=== PATIENT | male | born 1990 | race Caucasian/White ===

== ENCOUNTER 2020-03-31 16:47 | Emergency (ER) | payer SELFPAY ==
[2020-03-31] MEDS ORDERED: Sodium Chloride 0.9% 10 ML Syringe FLUSH PRN (17:00)
[2020-03-31] MEDS ORDERED: Sodium Chloride 0.9% 1,000 ML IV ONE (17:01)
[2020-03-31] MEDS ORDERED: Pantoprazole 40 MG Vial IVPUSH ONE (17:01)
[2020-03-31] MEDS ORDERED: Alum Hydroxide/Mag Hydroxide 15 ML, Lidocaine 2% 15 ML PO ONE ×2 (17:09)
[2020-03-31] MEDS ORDERED: Ondansetron 4 MG/2 ML SDV IVPUSH ONE (17:09)
--- NOTE | 2020-03-31 17:15 | EDM.PDOC ---
ED HPI GENERAL MEDICAL PROBLEM - General Chief Complaint: Abdominal Pain Stated Complaint: SEVERE ABD PAIN Time Seen by Provider: 03/31/20 17:10 Source of Information: Reports: Patient History Limitations: Reports: No Limitations - History of Present Illness INITIAL COMMENTS - FREE TEXT/NARRATIVE: Presents with worsening epigastric pain x 4-5 days, associated with nausea. History of similar symptoms previously after taking Ibuprofen, was diagnosed with gastritis. He has not taken NSAIDs after that diagnosis. The pain is exacerbated with PO intake, so he has not eaten or drank much in the last 3-4 days. Last urine output was 2 days ago. Patient no longer takes PPI medication because he does not have insurance. He denies EtOH consumption. He does continue to smoke cigarettes. Denies melena, hematochezia, or hematemesis. Patient also has a prior h/o hypokalemia, but no longer takes potassium supplements. Duration: Day(s): (5) Location: Reports: Abdomen Quality: Reports: Ache Severity: Severe Worsens with: Reports: Eating Associated Symptoms: Reports: Nausea/Vomiting - Related Data Allergies Allergy/AdvReac Type Severity Reaction Status Date / Time ibuprofen Allergy Stomach Verified 03/31/20 17:10 Ache Home Meds: Home Meds NK [No Known Home Meds] 03/31/20 [History] Past Medical History Gastrointestinal History: Reports: Gastritis Endocrine/Metabolic History: Reports: Other (See Below) (Hypokalemia) Social & Family History - Tobacco Use Tobacco Use Status *Q: Current Every Day Tobacco User Tobacco Use Within Last Twelve Months: Cigarettes - Alcohol Use Alcohol Use History: No ED ROS GENERAL - Review of Systems Review Of Systems: Comprehensive ROS is negative, except as noted in HPI. ED EXAM, GI/ABD - Physical Exam Exam: See Below Exam Limited By: No Limitations General Appearance: Alert, WD/WN, No Apparent Distress Ears: Hearing Grossly Normal Nose: Normal Inspection Throat/Mouth: No Airway Compromise Head: Atraumatic, Normocephalic Neck: Full Range of Motion Respiratory/Chest: No Respiratory Distress, Lungs Clear, Normal Breath Sounds Cardiovascular: Regular Rate, Rhythm, No Murmur GI/Abdominal Exam: Normal Bowel Sounds, Soft, No Distention, Guarding, Tender (epigastric) Extremities: Normal Range of Motion Neurological: Alert, Normal Cognition Psychiatric: Normal Affect, Normal Mood Skin Exam: Warm, Dry, Intact #1 Interpretation EKG Date: 03/31/20 Time: 17:58 Rhythm: NSR Rate (Beats/Min): 76 [place]: Normal P-Wave: Present QRS: Normal ST-T: Normal QT: Normal Comparison: NA - No Prior EKG Course - Vital Signs Last Recorded V/S: Last Vital Signs Temp 36.7 C 03/31/20 16:50 Pulse 127 H 03/31/20 16:50 Resp 18 03/31/20 16:50 BP 142/112 H 03/31/20 16:50 Pulse Ox 100 03/31/20 16:50 - Orders/Labs/Meds Orders: Active Orders 24 hr Category Date Time Status EKG Documentation Completion [RC] ASDIRECTED Care 03/31/20 17:02 Active Abdomen Pelvis w Cont [CT] Stat Exams 03/31/20 17:47 Taken UA W/MICROSCOPIC [URIN] Stat Lab 03/31/20 18:05 Received Sodium Chloride 0.9% [Saline Flush] Med 03/31/20 17:00 Active 10 ml FLUSH ASDIRECTED PRN Saline Lock Insert [OM.PC] Routine Oth 03/31/20 17:00 Ordered EKG 12 Lead [EK] Stat Ther 03/31/20 17:01 Ordered Medication Orders Sodium Chloride (Saline Flush) 10 ml FLUSH ASDIRECTED PRN PRN Reason: Keep Vein Open Labs: Laboratory Tests 03/31/20 03/31/20 03/31/20 Range/Units 17:15 17:15 17:15 WBC 8.1 (3.2-10.1) x10-3/uL RBC 5.26 (3.90-5.90) x10(6)uL Hgb 16.4 (12.9-17.7) g/dL Hct 47.7 (38.3-50.1) % MCV 90.7 (80.8-98.7) fL MCH 31.2 (27.0-33.3) pg MCHC 34.3 (28.7-35.3) g/dL RDW 13.0 (12.4-15.0) % Plt Count 397 (117-477) x10(3)uL MPV 7.5 (6.7-11.0) fL Neut % (Auto) 61.5 (40.3-71.8) % Lymph % (Auto) 28.8 (15.8-45.3) % [place] % (Auto) 7.1 (5.5-15.2) % Eos % (Auto) 1.5 (0.1-6.8) % Baso % (Auto) 1.1 (0.3-3.8) % Neut # (Auto) 5.0 (1.7-6.9) x10-3/uL Lymph # (Auto) 2.3 (0.5-4.5) x10-3/uL [place] # (Auto) 0.6 (0.0-1.2) x10-3/uL Eos # (Auto) 0.1 (0.0-0.6) x10-3/uL Baso # (Auto) 0.1 (0.0-0.3) x10-3/uL Sodium 137 (135-145) mmol/L Potassium 3.4 L (3.5-5.3) mmol/L Chloride 104 (100-110) mmol/L Carbon Dioxide 23 (21-32) mmol/L BUN 13 (7-18) mg/dL Creatinine 1.0 (0.70-1.30) mg/dL Est Cr Clr Drug Dosing 121.27 mL/min Estimated GFR (MDRD) > 60 (>60) BUN/Creatinine Ratio 13.0 (9-20) Glucose 135 H (80-116) mg/dL Calcium 8.9 (8.6-10.2) mg/dL Magnesium (1.8-2.5) mg/dL Total Bilirubin 0.3 (0.1-1.3) mg/dL AST 10 (5-25) IU/L ALT 22 (12-36) U/L Alkaline Phosphatase 55 L (56-112) IU/L Total Protein 7.2 (6.0-8.0) g/dL Albumin 3.9 (3.5-5.2) g/dL Globulin 3.3 g/dL Albumin/Globulin Ratio 1.2 Lipase 209 (73-393) U/L 03/31/20 Range/Units 17:15 WBC (3.2-10.1) x10-3/uL RBC (3.90-5.90) x10(6)uL Hgb (12.9-17.7) g/dL Hct (38.3-50.1) % MCV (80.8-98.7) fL MCH (27.0-33.3) pg MCHC (28.7-35.3) g/dL RDW (12.4-15.0) % Plt Count (117-477) x10(3)uL MPV (6.7-11.0) fL Neut % (Auto) (40.3-71.8) % Lymph % (Auto) (15.8-45.3) % [place] % (Auto) (5.5-15.2) % Eos % (Auto) (0.1-6.8) % Baso % (Auto) (0.3-3.8) % Neut # (Auto) (1.7-6.9) x10-3/uL Lymph # (Auto) (0.5-4.5) x10-3/uL [place] # (Auto) (0.0-1.2) x10-3/uL Eos # (Auto) (0.0-0.6) x10-3/uL Baso # (Auto) (0.0-0.3) x10-3/uL Sodium (135-145) mmol/L Potassium (3.5-5.3) mmol/L Chloride (100-110) mmol/L Carbon Dioxide (21-32) mmol/L BUN (7-18) mg/dL Creatinine (0.70-1.30) mg/dL Est Cr Clr Drug Dosing mL/min Estimated GFR (MDRD) (>60) BUN/Creatinine Ratio (9-20) Glucose (80-116) mg/dL Calcium (8.6-10.2) mg/dL Magnesium 1.9 (1.8-2.5) mg/dL Total Bilirubin (0.1-1.3) mg/dL AST (5-25) IU/L ALT (12-36) U/L Alkaline Phosphatase (56-112) IU/L Total Protein (6.0-8.0) g/dL Albumin (3.5-5.2) g/dL Globulin g/dL Albumin/Globulin Ratio Lipase (73-393) U/L Meds: Medications Generic Name Dose Route Start Last Admin Trade Name Freq PRN Reason Stop Dose Admin Sodium Chloride 10 ml 03/31/20 17:00 Saline Flush FLUSH ASDIRECTED PRN Keep Vein Open Discontinued Medications Generic Name Dose Route Start Last Admin Trade Name Freq PRN Reason Stop Dose Admin Al Hydroxide/Mg Hydroxide 15 0 ml 03/31/20 17:09 03/31/20 17:32 ml/ Lidocaine HCl 15 ml PO 03/31/20 17:10 30 ml ONETIME ONE Administration Sodium Chloride 1,000 mls @ 999 mls/hr 03/31/20 17:01 03/31/20 17:28 Normal Saline IV 03/31/20 18:01 999 mls/hr .BOLUS ONE Administration Iopamidol 100 ml 03/31/20 18:26 03/31/20 18:50 Isovue-370 (76%) IV 03/31/20 18:27 100 ml . DIRECTED ONE Administration Ondansetron HCl 4 mg 03/31/20 17:09 03/31/20 17:30 Zofran IVPUSH 03/31/20 17:10 4 mg ONETIME ONE Administration Pantoprazole Sodium 40 mg 03/31/20 17:01 03/31/20 17:35 Protonix Iv IVPUSH 03/31/20 17:02 40 mg ONETIME ONE Administration Sucralfate 1 gm 03/31/20 17:48 03/31/20 17:56 Carafate PO 03/31/20 17:49 1 gm ONETIME ONE Administration - Radiology Interpretation Free Text/Narrative:: CT Abd/Pelvis w/ IV contrast: Mildly thickened gallbladder wall, no radiopaque calculi. Slightly distended fluid filled stomach and fluid filled small bowel consistent with gastroenteritis. No bowel obstruction or perforation. (verbal report from Dr. Cuellar) - Re-Assessments/Exams Free Text/Narrative Re-Assessment/Exam: 03/31/20 19:07 Symptoms resolved after Protonix and GI cocktail. Departure - Departure Time of Disposition: 19:14 Disposition: Home, Self-Care 01 Condition: Good Clinical Impression: Epigastric pain - Discharge Information *PRESCRIPTION DRUG MONITORING PROGRAM REVIEWED*: No *COPY OF PRESCRIPTION DRUG MONITORING REPORT IN PATIENT [place]: Not Applicable Instructions: Gastritis, Adult, [id number] Referrals: Brandee Aviles NP [Physician] - 3 Days Forms: ED Department Discharge Additional Instructions: Avoid spicy and fatty foods. Take OTC Nexium, Prilosec, or Prevacid daily. You may also take OTC Pepcid as needed to control pain. Schedule an outpatient gallbladder ultrasound. Follow up with a primary physician in 3-4 days. Return to the ER as needed. Sepsis Event Note (ED) - Focused Exam Vital Signs: Vital Signs Temp Pulse Resp BP Pulse Ox 03/31/20 16:50 36.7 C 127 H 18 142/112 H 100 - My Orders Last 24 Hours: My Active Orders 03/31/20 17:00 Sodium Chloride 0.9% [Saline Flush] 10 ml FLUSH ASDIRECTED PRN Saline Lock Insert [OM.PC] Routine 03/31/20 17:01 EKG 12 Lead [EK] Stat 03/31/20 17:02 EKG Documentation Completion [RC] ASDIRECTED 03/31/20 17:47 Abdomen Pelvis w Cont [CT] Stat 03/31/20 18:05 UA W/MICROSCOPIC [URIN] Stat - Assessment/Plan Last 24 Hours: My Active Orders 03/31/20 17:00 Sodium Chloride 0.9% [Saline Flush] 10 ml FLUSH ASDIRECTED PRN Saline Lock Insert [OM.PC] Routine 03/31/20 17:01 EKG 12 Lead [EK] Stat 03/31/20 17:02 EKG Documentation Completion [RC] ASDIRECTED 03/31/20 17:47 Abdomen Pelvis w Cont [CT] Stat 03/31/20 18:05 UA W/MICROSCOPIC [URIN] Stat
[2020-03-31] MEDS ORDERED: Sucralfate 1 GM Tab PO ONE (17:48)
[2020-03-31] MEDS ORDERED: Iopamidol 755 Mg/ML 100 ML Bottle IV ONE (18:26)
--- NOTE | 2020-03-31 19:15 | CT ---
INDICATION: Epigastric abdominal pain. CT ABDOMEN AND PELVIS WITH CONTRAST: Spiral 3.75 mm axial sections were obtained through the abdomen and pelvis with oral and IV contrast (100 mL Isovue-370 at 2 mL per second) with sagittal and coronal reconstructions 03/31/20 - no comparisons. Total exam DLP was 374.42 mGy-cm. The lower lung green and pleural spaces visualized appeared normal. The heart is normal in size. No pericardial effusion was seen. The stomach has fluid within it not much contrast, however. No definite gastric abnormality was identified. Gallbladder wall appears to be slightly thickened, although no definite calculi were seen. If symptoms were referable to the gallbladder, gallbladder ultrasound is recommended for further evaluation. The liver appeared normal. The spleen, pancreas, adrenal glands, and kidneys appeared normal. No retroperitoneal mass was seen. The appendix appeared normal visualized on coronal images 29 through 33. No evidence of free air or bowel obstruction was seen. There were some fluid- filled loops of bowel although no significant distention or ladder type air- fluid levels were identified to suggest an obstructive process. Appearance could be on the basis of gastroenteritis or simply fluid ingestion of large amount. No definite mass lesions, organomegaly, or free fluid collections were identified in the abdomen or pelvis. Urinary bladder wall may be slightly thickened, however, it is not distended. IMPRESSION: 1. No definite acute process, but it is difficult to exclude a process such as gastroenteritis with the fluid-filled loops of bowel present, including the stomach. 2. Appearance of thickened wall of the gallbladder which is of questionable significance - gallbladder ultrasound may be warranted if symptoms are referable to the gallbladder. 3. CT abdomen and pelvis with oral and IV contrast otherwise unremarkable. Report was called to Dr. Horner at 1856 hours. KERI
== END 2020-03-31 19:40 | disposition home or self-care (01) ==
LOC: FB.ED 16:47
DX: R10.13 Epigastric pain (principal); R11.0 Nausea; F17.210 Nicotine dependence, cigarettes, uncomplicated; Z88.6 Allergy status to analgesic agent
CPT/HCPCS: 36415; 74177; 80053; 81001; 83690; 83735; 85025; 93005; 96374; 96375; 99284-25; A9270-GY; C9113; J2405; J7030; Q9967

== ENCOUNTER 2022-03-12 16:11 | Emergency (ER) | payer BC, MEDICAID ==
[2022-03-12] MEDS ORDERED: Sodium Chloride 0.9% 10 ML Syringe FLUSH PRN (17:10)
[2022-03-12] MEDS ORDERED: Morphine 4 MG/ML VIAL IVPUSH ONE (17:15)
[2022-03-12] MEDS ORDERED: Ketorolac 30 MG/ML SDV IVPUSH ONE (17:16)
[2022-03-12] MEDS ORDERED: cefTRIAXone 2 GM Vial IVPUSH ONE (17:16)
[2022-03-12 17:35] LABS: ESTIMATED GFR 103 mL/min (>60)
[2022-03-12] MEDS ORDERED: Sulfamethoxazole/Trimethoprim 800-160 MG Tab PO ONE (17:59)
== END 2022-03-12 19:30 | disposition home or self-care (01) ==
LOC: FB.ED 16:11
DX: L03.115 Cellulitis of right lower limb (principal); Z88.8 Allergy status to other drugs, medicaments and biological substances
CPT/HCPCS: 36415; 80053; 83605; 85025; 86140; 87040; 96374; 96375; 99283; 99283-25; J0696; J1885; J2270

== ENCOUNTER 2022-04-08 19:43 | Emergency (ER) | payer OTHER, BC, MEDICAID ==
[2022-04-08 20:26] LABS: ESTIMATED GFR 102 mL/min (>60)
== END 2022-04-08 21:15 | disposition home or self-care (01) ==
LOC: FB.ED 19:43
DX: F43.9 Reaction to severe stress, unspecified (principal)
CPT/HCPCS: 36415; 70450; 80048; 80307; 84484; 85025; 93005; 99285

== ENCOUNTER 2022-04-21 21:45 | Emergency (ER) | payer BC, MEDICAID | END 2022-04-21 22:19 | disposition home or self-care (01) | LOC: FB.ED 21:45 | DX: S81.012D Laceration without foreign body, left knee, subsequent encounter (principal); Z48.02 Encounter for removal of sutures; Z88.8 Allergy status to other drugs, medicaments and biological substances | CPT/HCPCS: 99281 ==

== ENCOUNTER 2022-07-22 08:09 | Emergency (ER) | payer BC, MEDICAID ==
[2022-07-22] MEDS ORDERED: Ketorolac 30 MG/ML SDV IM ONE (08:43)
[2022-07-22] MEDS ORDERED: Cyclobenzaprine 10 MG Tab PO ONE (09:23)
[2022-07-22] MEDS ORDERED: Trolamine Salicylate/Aloe Vera 10% Crm 85 GM Tube TOP PRN (09:27)
[2022-07-22] MEDS ORDERED: Menthol 10%/Methyl Salicylate 30% 85 GM Tube TOP PRN (10:07)
== END 2022-07-22 10:52 | disposition home or self-care (01) ==
LOC: FB.ED 08:09
DX: M77.8 Other enthesopathies, not elsewhere classified (principal); Z88.6 Allergy status to analgesic agent
CPT/HCPCS: 73030; 96372; 99283; A9270; J1885

== ENCOUNTER 2022-12-22 07:51 | Emergency (ER) | payer MEDICAID | END 2022-12-22 09:36 | disposition home or self-care (01) | LOC: FB.ED 07:51 | DX: S82.832A Other fracture of upper and lower end of left fibula, initial encounter for closed fracture (principal); S82.302A Unspecified fracture of lower end of left tibia, initial encounter for closed fracture; F17.210 Nicotine dependence, cigarettes, uncomplicated; Z88.6 Allergy status to analgesic agent; W13.2XXA Fall from, out of or through roof, initial encounter | CPT/HCPCS: 73610-LT; 73630-LT; 99283 ==

== ENCOUNTER 2023-01-16 18:48 | Emergency (ER) | payer MEDICAID ==
[2023-01-16] MEDS: LORazepam 2 MG/ML SDV IVPUSH PRN ×13 (18:58→22:03)
[2023-01-16] MEDS ORDERED: Sodium Chloride 0.9% 1,000 ML IV ONE (19:03)
[2023-01-16] MEDS ORDERED: LORazepam 2 MG/ML SDV ONE (19:07)
[2023-01-16 19:17] LABS: BASOPHILS ABSOLUTE AUTO 0.1 x10-3/uL (0.0-0.3); BASOPHILS PERCENT AUTO 1.2 % (0.3-3.8); EOSINOPHILS ABSOLUTE AUTO 0.4 x10-3/uL (0.0-0.6); EOSINOPHILS PERCENT AUTO 3.4 % (0.1-6.8); HEMATOCRIT 43.8 % (38.3-50.1); HEMOGLOBIN 15.1 g/dL (12.9-17.7); LYMPHOCYTES ABSOLUTE AUTO 4.9 x10-3/uL (0.5-4.5); LYMPHOCYTES PERCENT AUTO 42.5 % (15.8-45.3); MEAN CORPUSCULAR HEMOGLOBIN 32.4 pg (27.0-33.3); MEAN CORPUSCULAR HGB CONC 34.6 g/dL (28.7-35.3); MEAN CORPUSCULAR VOLUME 93.6 fL (80.8-98.7); MEAN PLATELET VOLUME 7.6 fL (6.7-11.0); MONOCYTES PERCENT AUTO 8.7 % (5.5-15.2); NEUTROPHILS ABSOLUTE AUTO 5.1 x10-3/uL (1.7-6.9); NEUTROPHILS PERCENT AUTO 44.2 % (40.3-71.8); PLATELET COUNT,PLT 400 x10(3)uL (117-477); RED BLOOD CELL COUNT 4.68 x10(6)uL (3.90-5.90); RED CELL DISTRIBUTION WIDTH 13.6 % (12.4-15.0); WHITE BLOOD CELL COUNT,WBC 11.6 x10-3/uL (3.2-10.1)
[2023-01-16 19:31] LABS: A/G RATIO 1.1; ALANINE AMINOTRANSFERASE,ALT 29 U/L (12-36); ALBUMIN 3.9 g/dL (3.5-5.2); ALKALINE PHOSPHATASE 91 IU/L (56-112); ASPARTATE AMNIOTRANSFERASE,AST 13 IU/L (5-25); BILIRUBIN TOTAL 0.3 mg/dL (0.1-1.3); BLOOD UREA NITROGEN,BUN 14 mg/dL (7-18); BUN/CREATININE RATIO 9.3 (9-20); CARBON DIOXIDE,CO2 20 mmol/L (21-32); CHLORIDE,CL 99 mmol/L (100-110); CREATININE 1.5 mg/dL (0.70-1.30); ESTIMATED GFR 63 mL/min (>60); ETHANOL BLOOD MEDICAL < 0.03 % (<0.03); GLUCOSE RANDOM 151 mg/dL (80-116); MAGNESIUM 1.9 mg/dL (1.8-2.5); PROTEIN TOTAL,TP 7.6 g/dL (6.0-8.0); SALICYLATE 4.7 mg/dL (<2.8); SODIUM,NA 136 mmol/L (135-145); TROPONIN I < 4.0 pg/mL (4.0-60.3)
[2023-01-16 19:35] LABS: POTASSIUM,K 2.7 mmol/L (3.5-5.3)
[2023-01-16 19:36] LABS: ACETAMINOPHEN < 2 ug/mL (<2)
[2023-01-16] MEDS ORDERED: Ondansetron 4 MG/2 ML SDV IVPUSH ONE (19:41)
[2023-01-16] MEDS ORDERED: Ondansetron 4 MG/2 ML SDV ONE (19:42)
[2023-01-16] MEDS ORDERED: Lidocaine 2% HCl 6 ML Jel ONE (19:51)
[2023-01-16] MEDS ORDERED: Potassium Chloride 10 MEQ in Premix Bag 1 BAG IV ONE (19:53)
[2023-01-16] MEDS ORDERED: LORazepam 2 MG/ML SDV IVPUSH ONE (21:39)
[2023-01-16] MEDS ORDERED: cefTRIAXone 2 GM Vial IVPUSH ONE (21:50)
[2023-01-16 22:41] LABS: APPEARANCE,URINE CLEAR (CLEAR); BACTERIA,URINE OCCASIONAL (NS); BILIRUBIN,URINE NEGATIVE (NEGATIVE); COLOR,URINE YELLOW (YELLOW); GLUCOSE,URINE NORMAL (NORMAL); KETONES,URINE NEGATIVE (NEGATIVE); LEUKOCYTE ESTERASE,URINE NEGATIVE (NEGATIVE); NITRITE,URINE NEGATIVE (NEGATIVE); OCCULT BLOOD,URINE NEGATIVE (NEGATIVE); PROTEIN,URINE NEGATIVE (NEGATIVE); RBC,URINE 0-5 (0-5); SQUAMOUS EPITHELIAL CELLS,UR RARE (NS,R,O); UROBILINOGEN,URINE NORMAL (NEGATIVE); WBC,URINE 0-5 (0-5)
[2023-01-16 22:42] LABS: AMPHETAMINES SCREEN, URINE NEGATIVE (NEGATIVE); BARBITURATE SCREEN,URINE NEGATIVE (NEGATIVE); BENZODIAZEPINES SCREEN,URINE POSITIVE (NEGATIVE); BUPRENORPHINE SCREEN,URINE NEGATIVE (NEGATIVE); METHADONE SCREEN, URINE NEGATIVE (NEGATIVE); METHAMPHETAMINE SCREEN, URINE NEGATIVE (NEGATIVE); OXYCODONE SCREEN,URINE NEGATIVE (NEGATIVE); THC SCREEN,URINE POSITIVE (NEGATIVE)
[2023-01-16] MEDS ORDERED: Ketamine 500 mg/10 ML MDV IV ONE (22:45)
== END 2023-01-16 22:30 ==
LOC: FB.ED 18:48
DX: T40.8X4A Poisoning by lysergide [LSD], undetermined, initial encounter (principal); R45.1 Restlessness and agitation; E87.6 Hypokalemia; R41.0 Disorientation, unspecified; J18.9 Pneumonia, unspecified organism; Z88.8 Allergy status to other drugs, medicaments and biological substances
CPT/HCPCS: 36415; 71045; 80053; 80143; 80179; 80307; 81001; 83605; 83735; 84484; 85025; 87040; 93005; 96361; 96365; 96375; 99285; J0696; J2060; J2405; J3480; J3490; J7030

== ENCOUNTER 2023-05-09 16:37 | Emergency (ER) | payer BC, MEDICAID ==
[2023-05-09] MEDS: Lidocaine/Epineph/Tetracaine 3 ML Syringe TOP ONE (17:00)
[2023-05-09] MEDS: Cephalexin 500 MG Cap PO ONE (17:46)
== END 2023-05-09 18:05 | disposition home or self-care (01) ==
LOC: FB.ED 16:37
DX: S61.012A Laceration without foreign body of left thumb without damage to nail, initial encounter (principal); F17.210 Nicotine dependence, cigarettes, uncomplicated; Z88.6 Allergy status to analgesic agent; W31.2XXA Contact with powered woodworking and forming machines, initial encounter
CPT/HCPCS: 12001; 99282; A9270